=== PATIENT | female | born 1960 | race Hispanic/Latino ===

== ENCOUNTER 2021-12-05 17:30 | Emergency (ER) | payer BC ==
[~2021-12-05] VITALS: Ht 160 cm; Wt 83.9 kg
[2021-12-05 18:00] LABS: APPEARANCE,URINE Clear (CLEAR); BILIRUBIN,URINE Negative (NEGATIVE); COLOR,URINE Yellow (YELLOW); GLUCOSE, URINE (UA) Negative (NEGATIVE); KETONES,URINE Negative (NEGATIVE); LEUKOCYTE ESTERASE ,URINE Negative (NEGATIVE); NITRATE,URINE Negative (NEGATIVE); OCCULT BLOOD,URINE Trace (NEGATIVE); PH,URINE 6.5 (5.0-8.0); PROTEIN,URINE Negative (NEGATIVE); UROBILINOGEN,URINE 0.2 mg/dL (0.2-1.0)
[2021-12-05 18:07] LABS: BACTERIA,URINE Rare /HPF (None Seen); SQUAMOUS EPITHELIAL CELL,UR None Seen /HPF (0-2); WBC,URINE 0-1 /HPF (0-1)
[2021-12-05 18:09] LABS: MUCUS,URINE Rare LPF (None Seen)
[2021-12-05 18:19] LABS: BASOPHILS % (AUTO) 0.6 % (0.0-5.0); EOSINOPHILS % (AUTO) 1.7 % (0.0-8.0); HEMATOCRIT 46.4 % (36-48); LYMPHOCYTES % (AUTO) 27.2 % (21.0-51.0); MEAN CORPUSCULAR HEMOGLOBIN 30.6 pg (27.0-33.0); MEAN CORPUSCULAR HGB CONC 33.6 g/dL (32.0-36.0); MONOCYTES % (AUTO) 4.4 % (3.0-13.0); NEUTROPHILS % (AUTO) 65.7 % (40.0-77.0); PLATELET COUNT (AUTO) 185 K/uL (130-400); RED CELL DISTRIBUTION WIDTH 12.6 % (11.0-15.5); WHITE BLOOD COUNT (AUTO) 8.1 K/uL (4.8-10.8)
[2021-12-05 18:30] LABS: CREATININE 0.9 mg/dL (0.5-1.5); POTASSIUM 3.5 mmol/L (3.5-5.1)
[2021-12-05] MEDS ORDERED: NIFEDIPINE 10 MG CAP PO ONE (18:30)
[2021-12-05 18:40] LABS: ALBUMIN 4.1 g/dL (3.5-5.0); BILIRUBIN,TOTAL 0.3 mg/dL (0.2-1.0); CRP QUANTITATIVE 10.7 mg/L (0.00-9.0); TOTAL PROTEIN, SERUM 8.1 g/dL (6.0-8.3)
[2021-12-05] MEDS ORDERED: HYDROXYZINE 25 MG TABLET PO ONE (19:00)
[2021-12-05 19:48] VITALS: BP 133/71
[2021-12-05] MEDS ORDERED: MECL-226 PO (19:54)
[2021-12-05] MEDS ORDERED: LOSA1TAB2 PO (19:54)
== END 2021-12-05 20:47 | disposition home or self-care (01) ==
LOC: EDH 17:30
DX: R42 Dizziness and giddiness (principal); I10 Essential (primary) hypertension; E66.9 Obesity, unspecified; Z68.32 Body mass index [BMI] 32.0-32.9, adult; Z72.0 Tobacco use; Z20.822 Contact with and (suspected) exposure to COVID-19
CPT/HCPCS: 36415; 71045; 80053; 81001; 84484; 85025; 86140; 87635; 87804 ×2; 93005; 99284; C9803

== ENCOUNTER 2023-11-04 18:36 | Emergency (ER) | payer BC ==
[~2023-11-04] VITALS: Ht 160 cm; Wt 92.5 kg
[~2023-11-04 18:36] MED LIST: LOSA-422 PO; MECL-226 PO
[2023-11-04] MEDS ORDERED: KETOROLAC 15MG/ML VIAL (15MG/ML) IM ONE (22:00)
[2023-11-04] MEDS ORDERED: CYCLOBENZAPRINE HCL 10 MG TABLET PO ONE (22:00)
[2023-11-04] MEDS ORDERED: LIDOCAINE 5% TOPICAL PATCH TP ONE (22:00)
[2023-11-04] MEDS ORDERED: CYCL-309 PO (22:03)
[2023-11-04] MEDS ORDERED: KETO10TA2 PO (22:03)
[2023-11-04 22:47] VITALS: BP 142/72; PULSE 68; RESP 18; O2SAT 97
== END 2023-11-04 23:15 | disposition home or self-care (01) ==
LOC: EDH 18:36
DX: G89.29 Other chronic pain (principal); M54.50 Low back pain, unspecified; M19.90 Unspecified osteoarthritis, unspecified site; I10 Essential (primary) hypertension; E66.9 Obesity, unspecified; Z79.899 Other long term (current) drug therapy; Z68.36 Body mass index [BMI] 36.0-36.9, adult
CPT/HCPCS: 99284; 96372; J1885

== ENCOUNTER 2025-07-20 17:13 | Emergency (ER) | payer BC ==
[~2025-07-20] VITALS: Ht 160 cm; Wt 90.7 kg
[~2025-07-20 17:13] MED LIST changes: +CYCL-309 PO; +KETO10TA2 PO
[2025-07-20 17:15] VITALS: TEMP 98.1
[2025-07-20] MEDS: ORPHENADRINE 60MG/2ML IM SCH (17:57)
--- NOTE | 2025-07-20 18:05 | ERN ---
ED Note History of Present Illness Stated Complaint: UPPER NECK, RT ARM PAIN Chief Complaint: Neck Pain Time Seen by MD: 17:15 Time Seen by Midlevel: 17:15 Dictation: The patient is a 64-year-old female who presents to the emergency department with complains of upper back pain that radiates to her right shoulder, neck and right arm onset 2 weeks ago. Patient denies any trauma. Patient reports that he had a similar episode last year and was told she had herniated disk. Patient reports she also went to her PCP who gave her some medication in the office and it improved but pain returned. Allergies: Coded Allergies: No Known Allergies (Unverified Allergy, Unknown, 12/05/21) Home Meds Active Scripts Cyclobenzaprine HCl (Cyclobenzaprine HCl) 10 Mg Tablet, 10 MG PO Q8H PRN for PAIN for 7 Days, #21 TAB Prov:SUZIE CARDOZA SUTURE POLISHER 11/04/23 Ketorolac Tromethamine (Ketorolac Tromethamine) 10 Mg Tablet, 10 MG PO Q6HPRN PRN for PAIN for 4 Days, #16 TAB Prov:SUZIE CARDOZA SUTURE POLISHER 11/04/23 Meclizine HCl (Meclizine HCl) 12.5 Mg Tablet, 25 MG PO TIDP, #30 TAB Prov:MARIA LUZ HUFF 12/05/21 Losartan/Hydrochlorothiazide (Hyzaar 50-12.5 Tablet) 1 Each Tablet, 1 EACH PO DAILY for 30 Days, #30 TAB Prov:MARIA LUZ HUFF 12/05/21 Past Medical History Past Medical History: Arthritis, Hypertension Additional Past Medical Hx: CHRONIC NECK/BACK PAIN Surgical History: None RN Note Reviewed/Agreed w/PFSH: Yes Review of System Dictation Constitutional: Negative for fever,chills, and weight loss Eyes: Negative for injury, pain,redness, and discharge ENT: Negative for injury,pain or swelling Cardiovascular: Negative for chest pain, palpitations, and edema Respiratory: Negative for shortness of breath, cough, and wheezing, Abdomen/GI: Negative for abdominal pain, nausea, vomiting, diarrhea, and constipation Back: Negative for injury and pain : Negative for injury, bleeding and discharge MS/Extremity: Positive for right arm pain, right shoulder pain, right neck pain Skin: Negative for rash, and discoloration Neuro: Negative for headache, weakness, numbness, tingling, and seizure Psych: Negative for suicide ideation, homicidal ideation, and hallucinations Initial Vital Sign VS Vital Signs Date Time Temp Pulse Resp B/P (MAP) Pulse Ox O2 Delivery O2 Flow Rate FiO2 07/20/25 17:15 98.1 88 16 153/90 98 Room Air 0 07/20/25 18:55 21 Physical Exam Dictation Vital Signs reviewed General Appearance: Alert, oriented x 3, no acute distress, well developed, nourished. Head and Face: non-traumatic. Eyes: PERRL, pink conjunctivas, eyelid no trauma, anterior chamber with arcus senilis. Ears: Pinnas intact and no signs of trauma or erythema ear canals clear and no discharge TM no erythema Nose: No discharge, no bleeding. Oropharynx: Mouth normal, tongue pink. pharynx clear,no erythema, tonsils no exudates, no abscesses noted, mucous membrane moist Neck: Supple, non-tender, no thyromegaly, no masses, no JVD, no bruits Breast:Deferred Chest:No tenderness, no crepitus, no paradoxical movement, no retractions Lungs:Clear, well-ventilated, symmetric, no rales, no wheezing, no rhonchi, no stridor, good breath sounds bilaterally Heart: Regular rate, regular rhythm, no murmur, no gallops Vascular: no peripheral edema, radial pulses 3+ bilaterally Abdomen: Soft, positive bowel sounds, nondistended, no guarding, nontender, no rebound, no masses no hepatomegaly, no splenomegaly, no Li's sign, no hernias. Rectal: Deferred Genital: Deferred Neurological: Normal speech, motor function intact, sensory function intact Musculoskeletal: Neck nontender, full range of motion, back nontender, full range of motion, Extremities: nontender, full range of motion Skin: Color pink, dry, no turgor, no rash, no lacerations, no abrasions, no contusions. Lymphatic: Deferred Results (Laboratory/Radiology) Laboratory/Radiology REASON: BACK PAIN UPPER ORDERING PHYSICIAN: NEHEMIAH GAO PROCEDURE: SCAP RT - SCAPULA COMP RT EXAM: CR right Scapula, 2 View. CLINICAL HISTORY: BACK PAIN UPPER COMPARISON: None provided. FINDINGS: BONES: No acute fracture or aggressive appearing osseous lesion. JOINTS: No dislocation. Mild acromioclavicular and glenohumeral joint osteoarthritis. Calcification within the rotator interval may reflect rotator cuff tendon pathology. SOFT TISSUES: The soft tissues are unremarkable. IMPRESSION: 1. No acute findings. /[place] REASON: BACK PAIN UPPER ORDERING PHYSICIAN: NEHEMIAH GAO PROCEDURE: CXR1VW - CHEST 1VW EXAM: CR Chest, 1 View. CLINICAL HISTORY: BACK PAIN UPPER COMPARISON: None provided. FINDINGS: LUNGS: There is no mass, infiltrate, or acute pulmonary abnormality. PLEURAL SPACES: No evidence of pleural effusion or pneumothorax. MEDIASTINUM: The cardiomediastinal silhouette is within normal limits. BONES: No aggressive appearing osseous lesion seen. IMPRESSION: No acute cardiopulmonary pathology is evident. /[place] Labs Reviewed?: Yes EKG: (+) rhythm (Sinus rhythm) EKG Comment: Date:07/20/2025 Time:1808 Ventricular rate:67 [place] interval:134 QRS duration:72 QT/QTc:389/389 EKG interpretation: Sinus rhythm Reviewed by ED Attending no STEMI ED Course ED Course Orders Procedure Category Date Status Time Chest 1vw RAD 07/20/25 Resulted 17:27 12 Lead Ekg Tracing- EKG 07/20/25 Complete Technical 17:27 Ketorolac PHA 07/20/25 In Process Tromethamine 15mg/Ml 17:30 Orphenadrine Citrate PHA 07/20/25 In Process (Norflex) 17:30 Scapula Comp Rt RAD 07/20/25 Resulted 17:27 Current Medications Medications (Trade) Dose Ordered Sig/Grecia Route PRN Reason Start Time Stop Time Status Last Admin Dose Admin Ketorolac Tromethamine (toRADol) 15 mg ONCE IM 07/20/25 17:30 07/20/25 22:30 07/20/25 17:57 Orphenadrine Citrate (Norflex) 60 mg ONCE IM 07/20/25 17:30 07/20/25 22:30 07/20/25 17:57 Vital Signs Date Time Temp Pulse Resp B/P (MAP) Pulse Ox O2 Delivery O2 Flow Rate FiO2 07/20/25 19:15 68 17 158/84 99 Room Air* 0 21 07/20/25 18:55 67 17 156/86 99 Room Air* 0 21 07/20/25 17:15 98.1 88 16 153/90 98 Room Air 0 Medical Decision Making MDM The patient is a 64-year-old female who presents to the emergency department with complains of upper back pain that radiates to her right shoulder, neck and right arm onset 2 weeks ago. Patient denies any trauma. Patient reports that he had a similar episode last year and was told she had herniated disk. Patient reports she also went to her PCP who gave her some medication in the office and it improved but pain returned. X-ray Showed no acute fractures or dislocations. On physical exam patient is in no acute distress, full range of motion to arm. Patient reports that pain has improved. Patient has had this pain in the past. Was here for the exact same reasons about a year ago. Patient instructed to follow up with PCP for further evaluation. Differential diagnosis: Chronic pain, pneumothorax, pneumonia Need for hospitalization: Patient does not meet criteria for hospitalization. There are no social concerns with this patient. DX & DISP Disposition: Discharge Departure Impression: Primary Impression: Chronic back pain Additional Impression: Right arm pain Condition: Stable Scripts Cyclobenzaprine HCl (Flexeril) 10 Mg Tab 10 MG PO TID for muscle sstiffness, #14 TAB 0 Refills Prov: JEREMIAH ALEGRIA TRUCK TRAILER MECHANIC 07/20/25 Additional Instructions: Your x-ray were unremarkable. Please follow up with your primary doctor in 1-2 days for further evaluation. Take your medications as prescribed. If anything worsens please return to ER. FOLLOW-UP WITH PRIMARY CARE PROVIDER IN 1 TO 2 DAYS. TAKE MEDICATIONS DIRECTED HERE IN THE EMERGENCY ROOM. OKAY TO CONTINUE HOME MEDICATIONS UNLESS OTHERWISE DISCUSSED DURING YOUR VISIT IN THE EMERGENCY ROOM TODAY. RETURN TO YOUR NEAREST EMERGENCY ROOM IF SYMPTOMS WORSEN OR IF THERE IS NO IMPROVEMENT. CALL 911 IF YOU NEED IMMEDIATE ASSISTANCE. TAKE TYLENOL [id number] NEEDED AND IF NO CONTRAINDICATIONS ARE PRESENT. INCREASE ORAL HYDRATION. A WOUND CULTURE OR URINE CULTURE WAS ORDERED HERE IN THE EMERGENCY ROOM DEPARTMENT PLEASE FOLLOW-UP WITH PRIMARY CARE PROVIDER AND ADVISE THEM TO GET REPEAT PORTS FROM OUR FACILITY. IF YOU HAD ANY DIMITRI WRAP/SPLINTS THAT WERE APPLIED HERE, PLEASE DO NOT REMOVE THEM UNTIL YOU SEE YOUR PRIMARY CARE OR SPECIALTY. Referrals: RONAL ORELLANA MD (PCP) Time of Disposition: 19:28 I have reviewed the case, and I agree with, Diagnosis and Plan JEREMIAH ALEGRIA TRUCK TRAILER MECHANIC Jul 20, 2025 18:05
--- NOTE | 2025-07-20 18:12 | EKG ---
[facility] Test Date: 2025-07-20 Test Time: 18:08:08 Pat Name: CLIFF DE LA ROSA Department: ED Room: Gender: F Lab Support Technician: [id number] : 1960 Requested By: NEHEMIAH GAO Order Number: [id number] Reading MD: Sandro Sesay Measurements Intervals [place] Rate: 67 P: 35 MT: 134 QRS: 28 QRSD: 72 T: 28 QT: 367 QTc: 389 Interpretive Statements Sinus rhythm Compared to ECG 12/05/2021 19:12:04 No significant changes Electronically Signed On 07-22-2025 21:43:44 CDT by Sandro Sesay Please click the below link to view image of tracing.
[2025-07-20 19:15] VITALS: BP 158/84; PULSE 68; RESP 17; O2SAT 99
--- NOTE | 2025-07-20 19:19 | HMCIMG ---
EXAM: CR right Scapula, 2 View. CLINICAL HISTORY: BACK PAIN UPPER COMPARISON: None provided. FINDINGS: BONES: No acute fracture or aggressive appearing osseous lesion. JOINTS: No dislocation. Mild acromioclavicular and glenohumeral joint osteoarthritis. Calcification within the rotator interval may reflect rotator cuff tendon pathology. SOFT TISSUES: The soft tissues are unremarkable. IMPRESSION: 1. No acute findings. /[place]
--- NOTE | 2025-07-20 19:24 | HMCIMG ---
EXAM: CR Chest, 1 View. CLINICAL HISTORY: BACK PAIN UPPER COMPARISON: None provided. FINDINGS: LUNGS: There is no mass, infiltrate, or acute pulmonary abnormality. PLEURAL SPACES: No evidence of pleural effusion or pneumothorax. MEDIASTINUM: The cardiomediastinal silhouette is within normal limits. BONES: No aggressive appearing osseous lesion seen. IMPRESSION: No acute cardiopulmonary pathology is evident. /[place]
[2025-07-20] MEDS ORDERED: CYCL10TA16 PO (19:29)
== END 2025-07-20 19:47 | disposition home or self-care (01) ==
LOC: EDH 17:13
DX: G89.29 Other chronic pain (principal); M54.6 Pain in thoracic spine; M79.601 Pain in right arm; I10 Essential (primary) hypertension; M19.90 Unspecified osteoarthritis, unspecified site; Z79.899 Other long term (current) drug therapy
CPT/HCPCS: 99284; 71045; 73010; 96372 ×2; 93005; J1885; J2360